=== PATIENT | female | born 1965 | race Caucasian/White ===

== ENCOUNTER 2017-05-14 16:00 | Emergency (ER) | payer OTHER ==
[2017-05-14 16:09] VITALS: BP 131/87
[2017-05-14] MEDS ORDERED: PROPARACAINE 0.5% OPHTH DROPS 15 ML EACHEYE STA (16:17)
--- NOTE | 2017-05-14 16:17 | ED Physician Documentation ---
PD HPI OPHTHO - Stated complaint Stated Complaint: SWELLING IN EYES - Chief complaint Chief Complaint: Heent - History obtained from History obtained from: Patient - History of Present Illness Timing - onset: How many weeks ago (2) Timing - duration: Weeks (2 weeks ago had plastic surgery for lower eyelids and has been using eye/lid ointment at direction of surgeon. Has had some redness and swelling of inner eyelids and itching over the time, with increase the past few days. 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 - Present Medications Home Medications: Ambulatory Orders Medication Instructions Recorded Confirmed Quetiapine Fumarate [Seroquel] 100 mg PO DAILY 06/18/14 05/14/17 Ketotifen Fumarate 5 ml EACHEYE Q4H PRN #1 bottle 05/14/17 prednisoLONE 1% OPHTH DROPS [Pred 1 drops OPTH TID #1 bottle 05/14/17 Forte 1% Ophth Drops] - Allergies Allergies/Adverse Reactions: Allergies Allergy/AdvReac Type Severity Reaction Status Date / Time No Known Drug Allergies Allergy Verified 06/18/14 19:19 - Social History Does the pt smoke?: No Smoking Status: Never smoker Does the pt drink ETOH?: Yes PD ED PE NORMAL - Vitals Vital signs reviewed: Yes - General General: Alert and oriented X 3, No acute distress, Well developed/nourished - HEENT HEENT: Atraumatic, PERRL, EOMI (eye movement is good. There is conjunctival edema with some redness both eyes without discharge. Edema does not involve iris area. No FB seen. Surgical wounds of eyelids appear healed without signs of infection. ), Ears normal, Moist mucous membranes, Pharynx benign, Other (no flourescein dye uptake on exam. No vesicular lesions seen. ) - Neck Neck: Supple, no meningeal sign, No adenopathy - Derm Derm: Normal color, Warm and dry, No rash Results - Vitals Vitals: Oxygen O2 Source Room air PD MEDICAL DECISION MAKING - ED course Complexity details: considered differential (consider local reaction to the ointment used that was Rx from the plastic surgeon. ), d/w patient Departure - Departure Disposition: 01 Home, Self Care Clinical Impression: Allergic conjunctivitis Qualifiers: Laterality: bilateral Qualified Code(s): H10.13 - Acute atopic conjunctivitis, bilateral Condition: Stable Record reviewed to determine appropriate education?: Yes Instructions: ED Allergic Conjunctivitis Follow-Up: Warren Schmitt ARNP [Primary Care Provider] - Prescriptions: Ketotifen Fumarate 5 ml EACHEYE Q4H PRN #1 bottle PRN Reason: Allergy Symptoms prednisoLONE 1% OPHTH DROPS [Pred Forte 1% Ophth Drops] 1 drops OPTH TID #1 bottle Comments: The eyes look like they are having allergic reaction or sensitivity. I would stop the eye ointment that you are using. You can use the artificial tears or just saline eyedrops for moisturizing as needed. Use ketotifen antihistamine eyedrops every 4-6 hours for the swelling for the next few days. Also use prednisolone steroid eyedrops as directed for 3-4 days until fully cleared. Recheck if not improved over the next 2-3 days and return sooner if worsening. Discharge Date/Time: 05/14/17 17:03
[2017-05-14] MEDS ORDERED: PROPARACAINE 0.5% OPHTH DROPS 15 ML ONE (16:30)
== END 2017-05-14 17:03 | disposition home or self-care (01) ==
LOC: ED 16:00
DX: H10.13 Acute atopic conjunctivitis, bilateral (principal); Z98.890 Other specified postprocedural states
CPT/HCPCS: 99283; J3490

== ENCOUNTER 2018-01-24 10:17 | Emergency (ER) | payer OTHER ==
--- NOTE | 2018-01-24 10:30 | ED Physician Documentation ---
History of Present Illness - Stated complaint Stated Complaint: HEART PALPITATIONS - Chief complaint Chief Complaint: Cardiac - History obtained from History obtained from: Patient, Family - History of Present Illness Timing: How many weeks ago (4) - Additonal information Additional information: 53-year-old female who is undergoing some relationship issues has developed a sensation of a palpitation in her heart that is associated with some transient lightheadedness and this is been going on for about 1 month. She does states she is getting some sleep at night because she takes her Seroquel she does have some overwhelming stress. 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 - Present Medications Home Medications: Ambulatory Orders Medication Instructions Recorded Confirmed Quetiapine Fumarate [Seroquel] 100 mg PO DAILY 06/18/14 05/14/17 Lorazepam [Ativan] 1 mg PO Q6HR PRN #12 tablet 01/24/18 - Allergies Allergies/Adverse Reactions: Allergies Allergy/AdvReac Type Severity Reaction Status Date / Time No Known Drug Allergies Allergy Verified 01/24/18 10:27 - Social History Does the pt smoke?: No Smoking Status: Never smoker Does the pt drink ETOH?: Yes PD ED PE NORMAL - Vitals Vital signs reviewed: Yes - General General: Alert and oriented X 3, No acute distress, Well developed/nourished - HEENT HEENT: Atraumatic, PERRL, EOMI - Neck Neck: Supple, no meningeal sign, No bony TTP - Cardiac Cardiac: RRR, No murmur - Respiratory Respiratory: No respiratory distress, Clear bilaterally - Abdomen Abdomen: Soft, Non tender - Back Back: No CVA TTP, No spinal TTP - Derm Derm: Normal color, Warm and dry, No rash - Extremities Extremities: No deformity, No edema - Neuro Neuro: No motor deficit, No sensory deficit Eye Opening: Spontaneous Motor: Obeys Commands Verbal: Oriented GCS Score: 15 - Psych Psych: Normal mood, Normal affect Results - Vitals Vitals: Vital Signs - 24 hr 01/24/18 10:23 Temperature 37 C Heart Rate 75 Respiratory 18 Rate Blood Pressure 130/77 O2 Saturation 96 Oxygen O2 Source Room air - EKG (time done) 1028 Rate: Rate (enter#) (80) Rhythm: NSR, Other (PVC's) Compare to prior EKG: Changed from prior EKG (SPT 09-18-2013 PVC's have developed) Computer interpretation: Agree with computer - Labs Labs: Laboratory Tests 01/24/18 01/24/18 01/24/18 10:30 10:30 10:30 WBC 6.6 RBC 4.81 Hgb 14.4 Hct 41.5 MCV 86.3 MCH 29.9 MCHC 34.6 RDW 13.2 Plt Count 281 MPV 6.9 L Neut # 3.4 Lymph # 2.7 Schuyler # 0.5 Eos # 0.1 Baso # 0.0 Absolute Nucleated RBC 0.00 Nucleated RBC % 0.0 Sodium 138 Potassium 3.7 Chloride 104 Carbon Dioxide 25 Anion Gap 9.0 BUN 8 Creatinine 0.7 Estimated GFR (MDRD) 88 L Glucose 107 H Calcium 8.9 Total Bilirubin 0.8 AST 20 ALT 21 Alkaline Phosphatase 60 Troponin I < 0.04 Total Protein 7.7 Albumin 3.8 Globulin 3.9 Albumin/Globulin Ratio 1.0 Lipase 25 - Rads (name of study) 2 veiw chest Radiology: Prelim report reviewed (Impression: No active cardiopulmonary disease.), EMP read indepedently, See rad report Procedures - IVC sono (time) 1205 Bedside IVC sono: IVC measures (cm) (1.69), Euvolemia PD MEDICAL DECISION MAKING - ED course Complexity details: reviewed old records, reviewed results, re-evaluated patient , considered differential, d/w patient, d/w family ED course: 53-year-old female with overwhelming stress at home has developed some palpitations. She is found to have some PVCs on her electrocardiogram. These are as often as twice per minute. There are no other abnormalities the patient' s workup. She is accompanied here today by an ex- who she was to for about 30 years the 2 of them seem to be able to get along just fine. She does have a boyfriend who she has known for 4 years and whom she is having a difficult time with ending the relationship. Departure - Departure Disposition: 01 Home, Self Care Clinical Impression: Stress and adjustment reaction, Symptomatic PVCs Condition: Stable Instructions: ED Palpitations, ED Stress React Follow-Up: POLO Mccollum [Provider Group] Prescriptions: Lorazepam [Ativan] 1 mg PO Q6HR PRN #12 tablet PRN Reason: Anxiety
[2018-01-24 10:54] LABS: BASOPHILS % (AUTO) 0.7 %; EOSINOPHILS # (AUTO) 0.1 10^3/uL (0.0-0.7); EOSINOPHILS % (AUTO) 1.2 %; HGB - HEMOGLOBIN 14.4 g/dL (12.0-16.0); LYMPHOCYTES # (AUTO) 2.7 10^3/uL (1.5-3.5); LYMPHOCYTES % (AUTO) 39.9 %; MEAN CORPUSCULAR HEMOGLOBIN 29.9 pg (27.0-31.0); MEAN CORPUSCULAR HGB CONC 34.6 g/dL (32.0-36.0); MEAN CORPUSCULAR VOLUME 86.3 fL (81.0-99.0); MEAN PLATELET VOLUME 6.9 fL (7.9-10.8); MONOCYTES # (AUTO) 0.5 10^3/uL (0.0-1.0); MONOCYTES % (AUTO) 7.2 %; NEUTROPHILS # (AUTO) 3.4 10^3/uL (1.5-6.6); PLT - PLATELET COUNT 281 10^3/uL (130-450); RED BLOOD COUNT 4.81 10^6/uL (4.20-5.40); RED CELL DISTRIBUTION WIDTH 13.2 % (12.0-15.0); WHITE BLOOD COUNT 6.6 x10^3/uL (4.8-10.8)
[2018-01-24 11:08] LABS: ALBUMIN 3.8 g/dL (3.2-5.5); BILIRUBIN,TOTAL 0.8 mg/dL (0.2-1.0); CALCIUM 8.9 mg/dL (8.5-10.3); CREATININE 0.7 mg/dL (0.4-1.0); TOTAL PROTEIN 7.7 g/dL (6.7-8.2)
--- NOTE | 2018-01-24 11:32 | XRAY Report ---
EXAM: CHEST RADIOGRAPHY EXAM DATE: 01/24/2018 11:11 AM. CLINICAL HISTORY: Chest pain. COMPARISON: None. TECHNIQUE: 2 views. FINDINGS: Lungs/Pleura: No focal opacities evident. Calcified granulomas, No pleural effusion. No pneumothorax. Normal volumes. Mediastinum: Heart and mediastinal contours are unremarkable. Calcified mediastinal lymph nodes Other: Compression fractures mid thoracic vertebral bodies. Kyphosis thoracic spine IMPRESSION: No active cardiopulmonary disease [facility] Referring Provider Line: [phone] SITE ID: [id number]
--- NOTE | 2018-01-24 11:32 | XRAY Preliminary Report ---
Exam: XR CHEST 2 VIEW X-RAY IMPRESSION: No active cardiopulmonary disease [facility] SITE ID: [id number]
[2018-01-24 12:15] VITALS: BP 116/85
== END 2018-01-24 12:20 | disposition home or self-care (01) ==
LOC: ED 10:17
DX: F43.8 Other reactions to severe stress (principal); I49.3 Ventricular premature depolarization; F32.9 Major depressive disorder, single episode, unspecified
CPT/HCPCS: 36415; 71046; 80053; 83690; 84484; 85025; 93005; 99283; 99284

== ENCOUNTER 2020-01-28 15:53 | Emergency (ER) | payer OTHER ==
[2020-01-28 16:00] VITALS: BP 146/74
[2020-01-28] MEDS ORDERED: CLINDAMYCIN 150 MG CAPSULE PO STA (16:11)
--- NOTE | 2020-01-28 16:14 | ED Physician Documentation ---
PD HPI WOUND RECHECK - Stated complaint Stated Complaint: BILAT LEG INJURY - Chief complaint Chief Complaint: Wound - Histroy obtained from History obtained from: Patient - History of Present Illness Location: Right Lower Extremity, Left Lower Extremity Timing - onset: How many weeks ago (1) Pain level max: 3 Pain level now: 2 Associated symptoms: Redness, Drainage. No: Fever Recently seen: Not recently seen - Additional information Additional information: 55-year-old female states that she fell on the treadmill a week ago and has 2 abrasions, 1 to the right knee that is small and 1 to the left anterior tibia that is larger. She states that they have become more painful over the past few days. 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 - Present Medications Home Medications: Ambulatory Orders Medication Instructions Recorded Confirmed Quetiapine Fumarate [Seroquel] 100 mg PO DAILY 06/18/14 05/14/17 Lorazepam [Ativan] 1 mg PO Q6HR PRN #12 tablet 01/24/18 Clindamycin HCl [Clindamycin 300MG 300 mg PO Q6H #28 capsule 01/28/20 CAP] - Allergies Allergies/Adverse Reactions: Allergies Allergy/AdvReac Type Severity Reaction Status Date / Time No Known Drug Allergies Allergy Verified 01/28/20 16:00 - Social History Does the pt smoke?: No Smoking Status: Never smoker Does the pt drink ETOH?: Yes Does the pt have substance abuse?: No PD ED PE NORMAL - Vitals Vital signs reviewed: Yes - General General: Alert and oriented X 3, No acute distress - HEENT HEENT: Moist mucous membranes - Neck Neck: Supple, no meningeal sign - Derm Derm: Warm and dry - Extremities Extremities: Other (3 x 3 cm abrasion with yellow exudate to the left anterior tibia. 1 x 1 cm abrasion to the right knee. No drainage. No fluctuance to either site. Neurovascular intact. No bony tenderness.) - Neuro Neuro: Alert and oriented X 3 Results - Vitals Vitals: Vital Signs - 24 hr 01/28/20 15:58 Temperature 36.7 C Heart Rate 84 Respiratory 14 Rate Blood Pressure 146/74 H O2 Saturation 97 Oxygen O2 Source Room air PD MEDICAL DECISION MAKING - ED course Complexity details: considered differential, d/w patient ED course: Patient states her tetanus is up-to-date. She has 2 open wounds, the right knee appears to be healing, the left knee appears to have a mild cellulitis. We will place her on clindamycin. We will encouraged her to leave these wounds open to the air to allow them to heal. Patient counseled regarding signs and symptoms for which I believe and urgent re-evaluation would be necessary. Patient with good understanding of and agreement to plan and is comfortable going home at this time This document was made in part using voice recognition software. While efforts are made to proofread this document, sound alike and grammatical errors may occur. Departure - Departure Disposition: 01 Home, Self Care Clinical Impression: Abrasion Cellulitis Qualifiers: Site of cellulitis: extremity Site of cellulitis of extremity: lower extremity Laterality: unspecified laterality Qualified Code(s): L03.119 - Cellulitis of unspecified part of limb Condition: Good Instructions: ED Infec Skin Cellulitis, ED Abrasion Follow-Up: SHERRI CARRASQUILLO [Primary Care Provider] - Within 1 week Prescriptions: Clindamycin HCl [Clindamycin 300MG CAP] 300 mg PO Q6H #28 capsule Comments: Take all antibiotics until gone. Return if you worsen. Follow-up with your doctor in 1 week for a wound check.
== END 2020-01-28 16:26 | disposition home or self-care (01) ==
LOC: ED 15:53
DX: S80.212A Abrasion, left knee, initial encounter (principal); L03.116 Cellulitis of left lower limb; W19.XXXA Unspecified fall, initial encounter; Y93.A1 Activity, exercise machines primarily for cardiorespiratory conditioning
CPT/HCPCS: 99282; 99284; A9270

== ENCOUNTER 2021-04-24 07:52 | Outpatient (CLI) | payer OTHER ==
--- NOTE | 2021-04-25 13:38 | Mammography Report ---
BILATERAL DIGITAL DIAGNOSTIC MAMMOGRAM 3D/2D: 04/24/2021 CLINICAL: Palpable left breast lump. Comparison is made to exams dated: 01/30/2019 mammogram, 12/21/2017 mammogram, and 09/23/2016 mammogram - [facility]. There are scattered fibroglandular elements in both breasts. No significant masses, calcifications, or other findings are seen in either breast. IMPRESSION: INCOMPLETE: NEEDS ADDITIONAL IMAGING EVALUATION There is no abnormality seen in the left breast to correspond with the area of clinical concern and p alpable abnormality indicated by triangular marker in the upper outer quadrant which likely represent normal fibroglandular tissue. An ultrasound is recommended for further evaluation and is scheduled to immediately follow this exami [facility]. This exam was interpreted at Station ID: [id number]. NOTE: For mammograms, a report in lay terms will be sent to the patient. Approximately 15% of breast malignancies will not be visualized mammographically. In the management of a palpable breast mass, a negative mammogram must not discourage biopsy of a clinically suspicious lesion. Electronically Signed By: Hair Sosa M.D. aty/:04/24/2021 12:53:38 ACR BI-RADS Category 0: Incomplete 3340F PARENCHYMAL PATTERN: (A) - The breast(s) demonstrate(s) scattered fibroglandular densities. BI-RADS CATEGORY: (0) - 0 Ultrasound [id number] Immediate follow-up LATERALITY: (L)
--- NOTE | 2021-04-25 13:38 | Ultrasound Report ---
LIMITED ULTRASOUND OF LEFT BREAST: 04/24/2021 CLINICAL: Palpable left breast lump. Comparison is made to exams dated: 04/24/2021 mammogram - [facility], 01/30/2019 mamm ogram, 12/21/2017 mammogram, and 09/23/2016 mammogram - [facility]. Color flow and real-time ultrasound of the left breast 2 o'clock region were performed. [place] scale images of the real-time examination were reviewed. No significant abnormalities were seen sonographically in the left breast. IMPRESSION: NEGATIVE There is no sonographic evidence of malignancy. There is no abnormality seen in the left breast to correspond with the area of clinical concern and p alpable abnormality in the upper outer quadrant which likely represent normal fibroglandular tissue, however, recommend clinical follow up for persistent or worsening symptoms, or development of any cli nically suspicious findings. A 1 year screening mammogram is recommended. Findings and recommendations were conveyed to the patient during today's evaluation. This exam was interpreted at Station ID: [id number]. Electronically Signed By: Hair Sosa M.D. aty/:04/24/2021 12:54:54 Ultrasound BI-RADS: 1 Negative BI-RADS CATEGORY: (1) - 1 RECOMMENDATION: (ANNUAL) - Recommend routine annual screening mammography. [id number] 1 year screening LATERALITY: (B)
== END 2021-04-24 07:53 | disposition home or self-care (01) ==
LOC: DI 07:52
PROVIDERS: ATTEND Student in an Organized Health Care Education/Training Program
DX: N63.20 Unspecified lump in the left breast, unspecified quadrant (principal); R92.2 Inconclusive mammogram